=== PATIENT | male | born 1950 | race Asian ===

== ENCOUNTER 2017-07-28 14:14 | Emergency (ER) | payer OTHER ==
[2017-07-28] MEDS ORDERED: TETANUS/DIPHTHERIA/PERTUSSIS 0.5 ML SYRINGE IM ONE (15:24)
[2017-07-28] MEDS ORDERED: LIDOCAINE 2% 10 ML MDV SUBQ STA (15:25)
[2017-07-28] MEDS ORDERED: LIDOCAINE 2% 10 ML MDV ONE (15:30)
--- NOTE | 2017-07-28 15:45 | ED Physician Documentation ---
PD HPI Fall - Stated complaint Stated Complaint: FACE LAC, GLF - Chief complaint Chief Complaint: Laceration - History obtained from History obtained from: Patient, Family - History of Present Illness Mechanism of injury: Slipped (off deck) Fall distance: 5 to 10ft Where injury occurred: Home Timing - onset: Today Injury(ies) location: Face (nose, upper lip). No: Ear, Neck, Chest, Abdomen, Back, Right Upper Extremity, Left Uppper Extremity, Right Lower Extremity, Left Lower Extremity Pain level max: 5 Pain level now: 1 Quality of pain: Pain, Aching, Dull Associated symptoms: No: LOC, AMS, Amnesia, Seizures, Ear drainage, Nasal drainage, Neck pain, Weakness, Paresthesias, Dyspnea, Nausea / vomiting, Hematemesis, Abdominal distension Symptoms improve with: Rest Worsens with: Movement, Palpation Contributing factors: No: Anticoagulated, Intoxicated Recently seen: Not recently seen Review of Systems Constitutional: denies: Fever Eyes: denies: Decreased vision, Photophobia Ears: denies: Ear pain Nose: denies: Epistaxis, Sinus pressure / pain GI: denies: Vomiting Musculoskeletal: denies: Neck pain, Back pain Neurologic: denies: Focal weakness, Numbness, Confused, Altered mental status, LOC PD PAST MEDICAL HISTORY - Past Medical History Past Medical History: No - Past Surgical History Past Surgical History: Yes General: Other Ortho: Hip replacement, ACL reconstruction, Other - Present Medications Home Medications: Ambulatory Orders Medication Instructions Recorded Confirmed No Known Home Medications [No 07/28/17 07/28/17 Known Home Medications] - Allergies Allergies/Adverse Reactions: Allergies Allergy/AdvReac Type Severity Reaction Status Date / Time No Known Drug Allergies Allergy Verified 07/28/17 14:23 - Living Situation Living Situation: reports: With family Living Arrangement: reports: At home - Social History Does the pt smoke?: No Smoking Status: Never smoker Does the pt drink ETOH?: Yes Does the pt have substance abuse?: No - Immunizations Immunizations are current?: Yes Immunizations: TDAP current <10years PD ED PE NORMAL - Vitals Vital signs reviewed: Yes - General General: Alert and oriented X 3, No acute distress - HEENT HEENT: PERRL, EOMI, Ears normal, Moist mucous membranes, Pharynx benign, Dentition benign, Other (no scalp hematoma, palpable skull fractures. no facial bone or nasal tenderness. ) - Neck Neck: Supple, no meningeal sign, No bony TTP - Cardiac Cardiac: RRR - Respiratory Respiratory: No respiratory distress, Clear bilaterally - Abdomen Abdomen: Soft, Non tender - Back Back: No spinal TTP - Derm Derm: Warm and dry - Extremities Extremities: No tenderness to palpate, Normal ROM s pain - Neuro Neuro: Alert and oriented X 3, quoter 2-12 intact, No motor deficit, No sensory deficit, Normal speech - Psych Psych: Normal mood, Normal affect PD ED PE EXPANDED - HEENT HEENT Visual: 1 - laceration (2 superficial lacerations, irregular, flap, superficial. 1cm and 0.5cm) 2 - laceration (1cm, linear, subcutaneous. does cross darcy border.) Results - Vitals Vitals: Vital Signs - 24 hr 07/28/17 07/28/17 14:20 16:03 Temperature 36.6 C Heart Rate 101 H 69 Respiratory 14 18 Rate Blood Pressure 158/80 H 165/93 H O2 Saturation 100 Oxygen O2 Source Room air Procedures - Laceration (location) nasal Length in cm: 1.5 Wound type: Irregular, Flap, Superficial, Clean Neurovascular status: Sensory intact, Vascular intact Wound Preparation: Irrigated copiously NS Skin layer closure: Dermabond Other: Patient tolerated well, No complications, Neurovascular intact upper lip Length in cm: 1 Wound type: Linear, Into subcut fat, Clean Neurovascular status: Sensory intact, Motor intact, Vascular intact Anesthesia: Lidocaine 2% (infraorbital nerve block, excellent anesthesia) Wound Preparation: Irrigated copiously NS, Wound explored, To the base. No: FB identified Skin layer closure: Nylon, Interrupted, Size #-0 - enter number (5), Sutures - enter # (2) Other: Patient tolerated well, No complications, Neurovascular intact, Tetanus UTD Complexity: Other (darcy border) PD MEDICAL DECISION MAKING - ED course Complexity details: considered differential, d/w patient, d/w family ED course: Patient is a 66-year-old male who fell off of his deck today striking his face on a plastic object on the way down. Sustained lacerations to the nose, which were repaired with Dermabond. Also has a left upper lip vermilion border laceration. Not through and through. This was repaired and patient tolerated well. Warnings of infection and instructions on wound care given at bedside. Also counseled on how to minimize scarring. Patient is GCS 15 and has no evidence of intracranial hemorrhage or skull fracture that require repair. No neck tenderness. No neurological deficits. Spines cleared clinically. Patient counseled regarding signs and symptoms for which I believe and urgent re- evaluation would be necessary. Patient with good understanding of and agreement to plan and is comfortable going home at this time This document was made in part using voice recognition software. While efforts are made to proofread this document, sound alike and grammatical errors may occur. Departure - Departure Disposition: 01 Home, Self Care Clinical Impression: Lip laceration Qualifiers: Encounter type: initial encounter Qualified Code(s): S01.511A - Laceration without foreign body of lip, initial encounter Laceration of nose Qualifiers: Encounter type: initial encounter Qualified Code(s): S01.21XA - Laceration without foreign body of nose, initial encounter Condition: Good Instructions: ED Laceration Mouth, ED Laceration Facial Skin Glue Follow-Up: your,doctor in 4-5 days for stitch removal [Other] Comments: Return if you worsen. Keep the wound clean. The stitches should be removed in 4- 5 days with your doctor. Do not apply any ointment to the glue as this may dissolve the glue. Discharge Date/Time: 07/28/17 16:03
[2017-07-28 16:05] VITALS: BP 165/93
== END 2017-07-28 16:03 | disposition home or self-care (01) ==
LOC: ED 14:14
DX: S01.21XA Laceration without foreign body of nose, initial encounter (principal); S01.511A Laceration without foreign body of lip, initial encounter; W18.11XA Fall from or off toilet without subsequent striking against object, initial encounter; Y92.009 Unspecified place in unspecified non-institutional (private) residence as the place of occurrence of the external cause; Z96.649 Presence of unspecified artificial hip joint
CPT/HCPCS: 12011; 99282